=== PATIENT | female | born 1975 | race Caucasian/White ===

== ENCOUNTER → 2019-09-25 13:23 | Outpatient (CLI) | payer OTHER, SELFPAY ==
--- NOTE | ~2019-09-25 | MR_ITS ---
EXAMINATION: MR cervical spine wo/w con EXAM DATE: 09/25/2019 15:47 INDICATION: Possible sclerosis follow-up. TECHNIQUE: Multi-sequential, multiplanar MR images of the cervical spine were obtained without contra st. Axial T2, axial T2 MERGE sequence. Sagittal T1, T2, T2 fat saturation images also obtained. Axi al T1 weighted sequence. Patient was then injected with 10 mL Multihance intravenous contrast and re imaged. Postcontrast axial and sagittal T1-weighted fat saturation sequences were obtained. There ar e no prior studies for comparison. FINDINGS: The spinal cord signal intensity and intrinsic morphology is normal. Cervicomedullary junc tion is normal in appearance. There are no suspicious marrow signal abnormalities. The vertebral bodi es are aligned in the AP dimension. There is mild disc disease at C5-6. Mild cervical arthropathy. No significant stenosis. There are no areas of abnormal enhancement on the post contrast images. IMPRESSION: 1. Normal cervical cord signal. 2. Mild cervical spondylosis. Reviewed, dictated and finalized at location B.
--- NOTE | ~2019-09-25 | MR_ITS ---
EXAMINATION: MR thoracic spine wo/w con EXAM DATE: 09/25/2019 15:42 INDICATION: Multiple sclerosis diagnosed 9 years ago. TECHNIQUE: Multi-sequential, multiplanar MR images of the thoracic spine were obtained without contra st. Sagittal T1, T2, T2 fat saturation, axial T2 weighted images reviewed. Axial T1 weighted sequenc e. Patient was then injected with 10 mL Multihance intravenous contrast and reimaged. Postcontrast axial and sagittal T1-weighted fat saturation sequences were obtained. There are no prior studies for comparison. FINDINGS: The spinal cord signal intensity and intrinsic morphology is normal. There is minimal thora cic disc disease and mild thoracic facet arthropathy. Thoracic neural foramen and central canal widel y patent. Paraspinal soft tissue is unremarkable. There are no areas of abnormal enhancement on the p ost contrast images. IMPRESSION: 1. Minimal thoracic spondylosis. 2. Normal cord signal. Reviewed, dictated and finalized at location B.
--- NOTE | ~2019-09-25 | MR_ITS ---
EXAMINATION: MR brain/brain stem wo/w con EXAM DATE: 09/25/2019 15:40 INDICATION: Follow-up to multiple sclerosis diagnosed 9 years ago. TECHNIQUE: Magnetic resonance imaging (MRI) of the brain/brain stem obtained without contrast. Sagit romero T1, axial diffusion, gradient echo (T2*), T1, T2, FLAIR sequences obtained. Patient was then inj ected with 10 cc intravenous Multihance contrast. Axial and coronal postcontrast T1 weighted sequence s obtained. There is no prior study for comparison. FINDINGS: There is 4 mm chronic-appearing left periventricular white matter hyperintensity, nonspecif ic location. No corpus callosal signal abnormalities. There are no areas of restricted diffusion to s uggest acute infarction. There is no acute hemorrhage seen on the T2*, a hemosiderin sensitive seque nce. No intraparenchymal brain mass. The ventricles are normal in size. There are no extra-axial co llections. Flow voids are seen in the cerebral arteries on the T2-weighted sequences consistent with their expected patency. The orbits are unremarkable. Soft tissue is unremarkable. There are no ar eas of abnormal enhancement on the post contrast images. IMPRESSION: Single nonspecific left periventricular white matter punctate hyperintensity. Reviewed, dictated and finalized at location B. IMPRESSION: Single nonspecific left periventricular white matter punctate hyper intensity.
[2019-09-25 14:07] LABS: Estimated Glomerular Filt Rate > 60
== END ==
DX: G35 Multiple sclerosis (principal); E55.9 Vitamin D deficiency, unspecified; Z79.899 Other long term (current) drug therapy; R93.89 Abnormal findings on diagnostic imaging of other specified body structures; G43.119 Migraine with aura, intractable, without status migrainosus; R93.0 Abnormal findings on diagnostic imaging of skull and head, not elsewhere classified; M47.892 Other spondylosis, cervical region
CPT/HCPCS: 36415; 70553; 72156; 72157; A9577

== ENCOUNTER → 2020-07-21 17:42 | Outpatient (CLI) | payer OTHER, SELFPAY ==
--- NOTE | ~2020-07-21 | MM_ITS ---
EXAMINATION: MM screening timmy BI w lamberto HISTORY: Screening mammogram TECHNIQUE: Craniocaudal and mediolateral oblique 3-D tomosynthesis images were obtained and synthetic 2-D images were generated. CAD analysis was submitted and interpreted. COMPARISON: No prior mammogram is available for comparison at this institution. BREAST PARENCHYMAL COMPOSITION: There are scattered areas of fibroglandular density. FINDINGS: There is no evidence of suspicious mass, calcification, or architectural distortion to sugg est malignancy in either breast. There has been no suspicious interval change. IMPRESSION: 1. No mammographic evidence of malignancy. 2. Recommend routine screening mammography in one year. BI-RADS Category 1: Negative Reviewed, dictated and finalized at location B. 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
== END ==
PROVIDERS: Visit Provider Nurse Practitioner Obstetrics & Gynecology
DX: Z12.31 Encounter for screening mammogram for malignant neoplasm of breast (principal)
CPT/HCPCS: 77063; 77067

== ENCOUNTER → 2020-12-09 07:37 | Outpatient (CLI) | payer OTHER, SELFPAY ==
--- NOTE | ~2020-12-09 | MR_ITS ---
EXAMINATION: MR thoracic spine wo/w con DATE: 12/09/2020 09:56 INDICATION: Multiple sclerosis. TECHNIQUE: Magnetic resonance imaging (MRI) of the thoracic spine was performed without and with 9 mL MultiHance intravenous contrast. Sequences included sagittal and axial T2-weighted FSE, sagittal STI R FSE, and sagittal and axial T1-weighted FSE. Postcontrast sequences included sagittal and axial T1- weighted FS FSE. COMPARISON: Cervical spine MRI 09/25/2019 FINDINGS: Bone alignment is normal. Vertebral body heights and intervertebral disc heights are normal . The distant extend beyond the endplate margins. There is multilevel mild facet joint osteoarthritis . No neural foraminal stenosis or central canal stenosis. The spinal cord signal intensity is normal. IMPRESSION: 1. Normal thoracic spinal cord. Reviewed, dictated and finalized at location B.
--- NOTE | ~2020-12-09 | MR_ITS ---
EXAMINATION: MR cervical spine wo/w con DATE: 12/09/2020 09:59 INDICATION: Multiple sclerosis. TECHNIQUE: Magnetic resonance imaging (MRI) of the cervical spine was performed without and with 9 mL MultiHance intravenous contrast. Sequences included sagittal and axial T2-weighted FSE, sagittal STI R FSE, and sagittal and axial T1-weighted FSE. Postcontrast sequences included sagittal and axial T1- weighted FS FSE. COMPARISON: Cervical spine MRI 09/25/2019 FINDINGS: Bone alignment is normal. Vertebral body heights are normal. There is mildly decreased disc height at C4-C5 and C5-C6. There is a lesion of increased T2-weighted signal intensity in the left p osterior aspect of the spinal cord at C4. No abnormal contrast enhancement. The following disc levels are specifically discussed: C2-C3: The disc does not extend beyond the endplate margin. There is no uncovertebral joint osteoarth ritis. There is mild left facet joint osteoarthritis. There is no neural foraminal stenosis. There is no central canal stenosis. C3-C4: The disc does not extend beyond the endplate margin. There is no uncovertebral joint osteoarth ritis. There is mild left facet joint osteoarthritis. There is no neural foraminal stenosis. There is no central canal stenosis. C4-C5: There is a central protrusion. There is no uncovertebral joint osteoarthritis. There is mild l eft facet joint osteoarthritis. There is no neural foraminal stenosis. There is no central canal sten osis. C5-C6: The disc is bulging. There is mild bilateral uncovertebral joint osteoarthritis. There is mode rate right and mild left facet joint osteoarthritis. There is mild bilateral neural foraminal stenosi s. There is mild central canal stenosis. C6-C7: The disc does not extend beyond the endplate margin. There is no uncovertebral joint osteoarth ritis. There is mild bilateral facet joint osteoarthritis. There is no neural foraminal stenosis. The re is no central canal stenosis. C7-T1: The disc does not extend beyond the endplate margin. There is no uncovertebral joint osteoarth ritis. There is mild right and severe left facet joint osteoarthritis. There is mild left neural fora bárbara stenosis. There is no central canal stenosis. IMPRESSION: 1. Stable spinal cord lesion at C4, consistent with multiple sclerosis. 2. Stable mild cervical spondylosis. Reviewed, dictated and finalized at location B.
--- NOTE | ~2020-12-09 | MR_ITS ---
EXAMINATION: MR brain/brain stem wo/w con DATE: 12/09/2020 10:02 INDICATION: Multiple sclerosis. TECHNIQUE: Magnetic resonance imaging (MRI) of the brain and brainstem was performed without and with 9 mL MultiHance intravenous contrast. Sequences included sagittal and axial T1-weighted FLAIR, axial T1-weighted FSE, axial diffusion-weighted FS EPI, sagittal T2-weighted FLAIR, axial T2*-weighted GRE , axial T2-weighted FLAIR Propeller, and axial T2-weighted Propeller. Postcontrast sequences included axial, coronal, and sagittal T1-weighted FSE. Apparent diffusion coefficient (ADC) maps were created . COMPARISON: Brain MRI 09/25/2019 FINDINGS: There are 3 foci of increased T2-weighted signal intensity in the cerebral white matter, wh ich is normal for the patient's age. There is no infratentorial lesion. There is no enhancing lesion. There is no acute ischemic infarct or intracranial hemorrhage. The ventricles are normal in size. Th ere is mild mucosal thickening in the paranasal sinuses. The orbits are normal. The mastoid air cells are normal. IMPRESSION: 1. Normal aging brain. Reviewed, dictated and finalized at location B. IMPRESSION: 1. Normal aging brain.
[2020-12-09 08:18] LABS: Estimated Glomerular Filt Rate > 60
== END ==
DX: G35 Multiple sclerosis (principal); M47.813 Spondylosis without myelopathy or radiculopathy, cervicothoracic region; M48.03 Spinal stenosis, cervicothoracic region
CPT/HCPCS: 70553; 72156; 72157; A9577

== ENCOUNTER → 2021-11-18 13:07 | Outpatient (CLI) | payer OTHER, SELFPAY ==
--- NOTE | ~2021-11-18 | MM_ITS ---
EXAMINATION: MM screening timmy BI w lamberto HISTORY: Screening mammogram TECHNIQUE: Craniocaudal and mediolateral oblique 3-D tomosynthesis images were obtained and synthetic 2-D images were generated. CAD analysis was submitted and interpreted. COMPARISON: 07/21/2020 bilateral screening mammogram BREAST PARENCHYMAL COMPOSITION: There are scattered areas of fibroglandular density. FINDINGS: There is no evidence of suspicious mass, calcification, or architectural distortion to sugg est malignancy in either breast. There has been no suspicious interval change. IMPRESSION: 1. No mammographic evidence of malignancy. 2. Recommend routine screening mammography in one year. BI-RADS Category 1: Negative Reviewed, dictated and finalized at location A.
== END ==
PROVIDERS: PCP Nurse Practitioner; Visit Provider Nurse Practitioner Obstetrics & Gynecology
DX: Z12.31 Encounter for screening mammogram for malignant neoplasm of breast (principal)
CPT/HCPCS: 77063; 77067

== ENCOUNTER → 2023-02-22 07:25 | Outpatient (CLI) | payer OTHER, SELFPAY ==
--- NOTE | ~2023-02-22 | MM_ITS ---
EXAMINATION: MM screening timmy BI w lamberto HISTORY: Screening mammogram, family history of breast cancer in her mother. TECHNIQUE: Craniocaudal and mediolateral oblique 3-D tomosynthesis images were obtained and synthetic 2-D images were generated. CAD analysis was submitted and interpreted. COMPARISON: 11/18/2021, 07/21/2020 BREAST PARENCHYMAL COMPOSITION: There are scattered areas of fibroglandular density. FINDINGS: No suspicious mass, calcification, or architectural distortion are identified in either ananth ast to suggest malignancy. There has been no suspicious interval change. IMPRESSION: 1. No mammographic evidence of malignancy. 2. Recommend routine screening mammography in one year. BI-RADS Category 1: Negative Reviewed, dictated and finalized at location A.
== END ==
PROVIDERS: PCP Nurse Practitioner; Visit Provider Nurse Practitioner Obstetrics & Gynecology
DX: Z12.31 Encounter for screening mammogram for malignant neoplasm of breast (principal)
CPT/HCPCS: 77063; 77067

== ENCOUNTER 2024-05-10 09:49 | Outpatient (CLI) | payer OTHER, SELFPAY ==
--- NOTE | ~2024-05-10 | MM_ITS ---
EXAMINATION: MM screening timmy BI w lamberto HISTORY: Screening mammogram, family history of breast cancer in her mother. TECHNIQUE: Craniocaudal and mediolateral oblique 3-D tomosynthesis images were obtained and synthetic 2-D images were generated. CAD analysis was submitted and interpreted. COMPARISON: 02/22/2023, 11/18/2021 BREAST PARENCHYMAL COMPOSITION:Dense: The breasts are extremely dense, which lowers the sensitivity o f mammography. FINDINGS: No suspicious mass, calcification, or architectural distortion are identified in either ananth ast to suggest malignancy. There has been no suspicious interval change. IMPRESSION: No mammographic evidence of malignancy. Recommend routine screening mammography in one year. BI-RADS Category 1: Negative Reviewed, dictated and finalized at location .
== END 2024-05-10 09:50 | disposition home or self-care (01) ==
PROVIDERS: PCP Nurse Practitioner Obstetrics & Gynecology; Visit Provider Nurse Practitioner Obstetrics & Gynecology
DX: Z12.31 Encounter for screening mammogram for malignant neoplasm of breast (principal)
CPT/HCPCS: 77063; 77067

== ENCOUNTER 2024-12-15 06:00 | Day surgery (SDC) | payer OTHER, SELFPAY ==
[2024-07-15 11:11] VITALS: BMI 17.3
[2024-11-25 13:11] VITALS: BMI 18.6
--- OUTSIDE RECORDS SUMMARY | 2024-12-15 06:48 | XMS_ITS | Encounter Summary ---
Author Organization [facility] Address [address] [place] [address] Phone Care Team Providers Care Scrap Handler Name Role Phone Unknown, Notinfile Primary Care Provider Unavail able Ayala Howell NP Primary Care Provider [phone] Encounter Details Date Type Department Care Team (Latest Contact Info) Description 02/14/2021 Orders Only [facility] MS Scanning, Provider Social History Tobacco Use Types Packs/Day Years Used Date Smoking Tobacco: Never Smokeless Tobacco: Never Comments No Sex and Gender Information Value Date Recorded Sex Assigned at Not on file Legal Sex Female 10:50 AM DIRECTOR OF MANAGED CARE Gender Identity Female 03/05/2020 9:01 AM CDT Sexual Orientation Straight 03/05/2020 9: 01 AM CDT documented as of this encounter Plan of Treatment Not on file documented as of this encounter Procedures Procedure Name Priority Date/Time Associated Diagnosis Comments SCAN - RADIOLOGY/IMAGING 02/14/2021 4:45 PM CDT documented in this encounter Results * SCAN - RADIOLOGY/IMAGING (02/14/2021 4:45 PM CDT) Anatomical Region Laterality Modality Other us Provider Scanning Final Result documented in this encounter Visit Diagnoses Not on filedocumented in this encounter Care Teams Scrap Handler Relationship Specialty Start Date End Date Unknown, Notinfdarin PCP - General 11/02/19 11/21/21 Ayala Howell, PATIENT ACCOUNT REPRESENTATIVE PCP - General Nurse Practitioner 11/22/21 documented as of this encounter
--- OUTSIDE RECORDS SUMMARY | 2024-12-15 06:48 | XMS_ITS | Clinical Summary ---
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 Name Role Phone Ayala Howell NP Primary Care Provider Allergies Active Allergy Reactions Criticality Noted Date Comments Gadolinium-Containing Contrast Media Itching Low 12/13/2020 Itching, throat tigntness- needs pre-med Medications cholecalciferol (VITAMIN D-3) 2000 unit capsule 1 capsule (2,000 Units total) Active levonorgestreL (MIRENA) IUD 1 each by intrauterine route once Active multivitamin (Multiple Vitamins) tablet Take 1 tablet by mouth daily Active ozanimod (Zeposia) 0.92 mg capsule Take 0.92 mg by mouth daily 90 capsule 1 5 Active dalfampridine 10 mg tablet extended release 12 hr Take 1 tablet (10 mg total) by mouth every 12 (twelve) hours 60 tablet 5 5 Active Active Problems Problem Noted Date Diagnosed Date Protein-calorie malnutrition, unspecified severi ty 07/01/2024 Medication monitoring encounter 07/31/2022 Chronic fatigue disorder 07/31/2022 Immunosuppression due to drug therapy 01/11/2022 Dysesthesia of multiple sites 01/11/2022 History of COVID-19 01/11/2022 Immunocompromised 09/19/2021 Clinical diagnosis of COVID-19 06/20/2021 Multiple sclerosis 08/25/2019 High risk medication use 08/25/2019 Abnormal MRI 08/25/2019 Vitamin D deficiency 08/25/2019 Intractable migraine 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 08/25/2019 Encounters Date Type Department Care Team Description 09/24/2024 6:40 AM CDT - 09/24/2024 11:59 PM CDT Hospital Encounter [facility] ([facility]) [address] [place], [place] [id number] Hali Shay MD Multiple sclerosis (HCC) Discharge Disposition: Discharge to home or self care from Last 3 Months Immunizations Immunization Administration Dates Next Due Influenza, Quadrivalent, Jeniffer l Culture-based MDCK, Preservative Free, Antibiotic Free, Intramuscular 05/03/2023,04/26/2021 Influenza, Trivalent, IM (MDV) 04/21/2022 Medical History Medical History Date Comments Multiple sclerosis (HCC) Social History Tobacco Use Types Packs/Day Years Used Date Smoking Tobacco: Never Smokeless Tobacco: Never Tobacco Cessation:Counseling Given: Not Answered Comments No Sex and Gender Information Value Date Recorded Sex Assigned at Not on file Legal Sex Female 10:50 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 Gender Identity Female 03/05/2020 9:01 AM CDT Sexual Orientation Straight 03/05/2020 9: 01 AM CDT Obstetrics History Last Filed Vital Signs Vital Sign Reading Time Taken Comments Blood Pressure 108/72 07/01/2024 9:52 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 Pulse 105 07/01/2024 9:52 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 Temperature 36.3 C (97.4 F) 11/21/2022 8:01 AM CDT Respiratory Rate 16 09/22/2021 11:35 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 Oxygen Saturation 98% 09/22/2021 11:35 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 Inhaled Oxygen Concentration - - Weight 51 kg (112 lb 6.4 oz) 07/01/2024 9:52 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 Height 167.6 cm (5' 6) 07/01/2024 9:52 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 Body Mass Index 18.14 07/01/2024 9:52 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 Plan of Treatment Health Maintenance Due Date Last Done Comments Cervical Cancer Screening 1977 Colon Cancer Screening-Colonoscopy 1977 Depression Screening 1977 Hepatitis C Screening 1977 DTaP/Tdap/Td Vaccine (1 - Tdap) 1988 Hepatitis B Screening 1995 Regular Well Visit/Exam 18-64 1995 Pneumococcal vaccine <65 (1 of 2 - PCV) 1996 Zoster Vaccine (1 of 2) 1996 Covid-19 Vaccine (2023-2 5 season) 2024 09/10/2022, 01/23/2022, 04/26/2021, Additional history exists Influenza Vaccine (Season Ended) 2025 05/03/2023, 04/21/2022, 04/26/2021 Breast Cancer Screening-Mammogram 05/10/2025 05/10/2024, 11/18/2021, 07/22/2020, Additional history exists Procedures Procedure Name Priority Date/Time Associated Diagnosis Comments MRI MS BRAIN 3T PROTOCOL W/O Schedule Routine, Read Routine (OP Routine) 09/24/2024 8:30 AM CDT Multiple sclerosis (HCC) MRI CERVICAL SPINE WO CONTRAST Schedule Routine, Read Routine (OP Routine) 09/24/2024 8:30 AM CDT Multiple sclerosis (HCC) MRI THORACIC SPINE WO CONTRAST Schedule Routine, Read Routine (OP Routine) 09/24/2024 8:30 AM CDT Multiple sclerosis (HCC) from Last 3 Months Results * MRI Thoracic Spine WO Contrast (09/24/2024 8:30 AM CDT) Anatomical Region Laterality Modality Spine N/A Magnetic Resonan ce 09/24/2024 10:1 2 AM CDT Impressions 09/24/2024 11:32 AM CDT Multiple unchanged intracranial and spinal white matter lesions. New T2 Lesions: None Other significant findings: None Electronically signed by: Wally Quintero M.D. Narrative 09/24/2024 11:32 AM CDT EXAMINATION: 1. Magnetic resonance imaging (MRI) of the brain and brainstem without contrast 2. Magnetic resonance imaging (MRI) of the cervical spine without contrast 3. Magnetic resonance imaging (MRI) of the thoracic spine without contrast HISTORY: Multiple sclerosis. TECHNIQUE: Multiplanar multi-weighted MRI of the brain, brainstem was performed without and with intravenous contrast using the multiple sclerosis protocol, which includes high resolution 3D T1-weighted, FLAIR, and T2*-weighted gradient echo images. Multiplanar multi-weighted MRI of the cervical spine was performed without intravenous contrast using the standard protocol. Multiplanar multi-weighted MRI of the thoracic was performed without and with intravenous contrast using the standard protocol. Scanner: [employer] Field Strength: 3T COMPARISON: None Available. FINDINGS: BRAIN: There are multiple foci of hyperintensity on FLAIR and T2-weighted images within the white matter compatible with demyelinating plaques of multiple sclerosis. This includes periventricular and left thalamic lesions. New Brain T2 Lesions: None T1 Hypointense Black Holes: 0 T2/FLAIR [place] of Disease: Mild, less than 10 typical lesions or 20 punctate lesions Parenchymal Volume Loss: None Central Vein Sign: Central vein sign is noted within the left parietal lobe lesion unchanged. Other Significant Findings: None The visualized portions of the optic nerves are normal. The scalp and calvarium are normal. The superior sagittal sinus demonstrates normal venous flow. The corpus callosum is normal in shape and signal intensity. The posterior fossa is unremarkable. The pituitary and sella are normal. The brainstem and craniocervical junction are unremarkable. Diffusion weighted images reveal no hyperintensities to suggest acute cerebral infarction. The susceptibility weighted sequences reveal no evidence of acute or chronic hemorrhage. The ventricles are normal in size and position without evidence of hydrocephalus. Mild mucosal thickening is seen within the maxillary sinuses. A mucus retention cyst is seen within the left maxillary sinus. The visualized portions of the mastoids are unremarkable. The orbits appear normal. Normal flow voids are demonstrated in the carotid arteries and basilar artery. CERVICAL SPINE: There is a lesion within the dorsal left aspect of the cord at C4-C5, similar to the prior study (series 34, image 24). New Spine T2 Lesions: None The alignment of the cervical spine is normal. Vertebral bodies demonstrate normal signal intensity on all sequences. No acute fracture is identified. The craniocervical junction is normal. The visualized portions of the skull base and the posterior fossa are normal. The spinal cord demonstrates normal signal intensity on all sequences. Intervertebral disks have normal height and signal intensity. There are no annular fissures identified. No soft tissue abnormality is identified. Normal signal voids are present in the vertebral arteries. THORACIC SPINE: New Spine T2 Lesions: None The alignment of the thoracic spine is normal. Vertebral bodies demonstrate normal signal intensity on all sequences. There are no compression fractures. The spinal cord demonstrates normal signal intensity on all sequences. Intervertebral disks have normal height and signal intensity. Limited views of the chest and abdomen show no soft tissue abnormality. The aorta is normal. Procedure Note Wally Quintero MD - 09/24/2024 EXAMINATION: 1. Magnetic resonance imaging (MRI) of the brain and brainstem without contrast 2. Magnetic resonance imaging (MRI) of the cervical spine without contrast 3. Magnetic resonance imaging (MRI) of the thoracic spine without contrast HISTORY: Multiple sclerosis. TECHNIQUE: Multiplanar multi-weighted MRI of the brain, brainstem was performed without and with intravenous contrast using the multiple sclerosis protocol, which includes high resolution 3D T1-weighted, FLAIR, and T2*-weighted gradient echo images. Multiplanar multi-weighted MRI of the cervical spine was performed without intravenous contrast using the standard protocol. Multiplanar multi-weighted MRI of the thoracic was performed without and with intravenous contrast using the standard protocol. Scanner: [employer] Field Strength: 3T COMPARISON: None Available. FINDINGS: BRAIN: There are multiple foci of hyperintensity on FLAIR and T2-weighted images within the white matter compatible with demyelinating plaques of multiple sclerosis. This includes periventricular and left thalamic lesions. New Brain T2 Lesions: None T1 Hypointense Black Holes: 0 T2/FLAIR [place] of Disease: Mild, less than 10 typical lesions or 20 punctate lesions Parenchymal Volume Loss: None Central Vein Sign: Central vein sign is noted within the left parietal lobe lesion unchanged. Other Significant Findings: None The visualized portions of the optic nerves are normal. The scalp and calvarium are normal. The superior sagittal sinus demonstrates normal venous flow. The corpus callosum is normal in shape and signal intensity. The posterior fossa is unremarkable. The pituitary and sella are normal. The brainstem and craniocervical junction are unremarkable. Diffusion weighted images reveal no hyperintensities to suggest acute cerebral infarction. The susceptibility weighted sequences reveal no evidence of acute or chronic hemorrhage. The ventricles are normal in size and position without evidence of hydrocephalus. Mild mucosal thickening is seen within the maxillary sinuses. A mucus retention cyst is seen within the left maxillary sinus. The visualized portions of the mastoids are unremarkable. The orbits appear normal. Normal flow voids are demonstrated in the carotid arteries and basilar artery. CERVICAL SPINE: There is a lesion within the dorsal left aspect of the cord at C4-C5, similar to the prior study (series 34, image 24). New Spine T2 Lesions: None The alignment of the cervical spine is normal. Vertebral bodies demonstrate normal signal intensity on all sequences. No acute fracture is identified. The craniocervical junction is normal. The visualized portions of the skull base and the posterior fossa are normal. The spinal cord demonstrates normal signal intensity on all sequences. Intervertebral disks have normal height and signal intensity. There are no annular fissures identified. No soft tissue abnormality is identified. Normal signal voids are present in the vertebral arteries. THORACIC SPINE: New Spine T2 Lesions: None The alignment of the thoracic spine is normal. Vertebral bodies demonstrate normal signal intensity on all sequences. There are no compression fractures. The spinal cord demonstrates normal signal intensity on all sequences. Intervertebral disks have normal height and signal intensity. Limited views of the chest and abdomen show no soft tissue abnormality. The aorta is normal. IMPRESSION: Multiple unchanged intracranial and spinal white matter lesions. New T2 Lesions: None Other significant findings: None Electronically signed by: Wally Quintero M.D. Hali Shay MD IMG MRI PROCEDURES Final Result * MRI Cervical Spine WO Contrast (09/24/2024 8:30 AM CDT) Anatomical Region Laterality Modality Spine N/A Magnetic Resonan ce 09/24/2024 10:1 2 AM CDT Impressions 09/24/2024 11:32 AM CDT Multiple unchanged intracranial and spinal white matter lesions. New T2 Lesions: None Other significant findings: None Electronically signed by: Wally Quintero M.D. Narrative 09/24/2024 11:32 AM CDT EXAMINATION: 1. Magnetic resonance imaging (MRI) of the brain and brainstem without contrast 2. Magnetic resonance imaging (MRI) of the cervical spine without contrast 3. Magnetic resonance imaging (MRI) of the thoracic spine without contrast HISTORY: Multiple sclerosis. TECHNIQUE: Multiplanar multi-weighted MRI of the brain, brainstem was performed without and with intravenous contrast using the multiple sclerosis protocol, which includes high resolution 3D T1-weighted, FLAIR, and T2*-weighted gradient echo images. Multiplanar multi-weighted MRI of the cervical spine was performed without intravenous contrast using the standard protocol. Multiplanar multi-weighted MRI of the thoracic was performed without and with intravenous contrast using the standard protocol. Scanner: [employer] Field Strength: 3T COMPARISON: None Available. FINDINGS: BRAIN: There are multiple foci of hyperintensity on FLAIR and T2-weighted images within the white matter compatible with demyelinating plaques of multiple sclerosis. This includes periventricular and left thalamic lesions. New Brain T2 Lesions: None T1 Hypointense Black Holes: 0 T2/FLAIR [place] of Disease: Mild, less than 10 typical lesions or 20 punctate lesions Parenchymal Volume Loss: None Central Vein Sign: Central vein sign is noted within the left parietal lobe lesion unchanged. Other Significant Findings: None The visualized portions of the optic nerves are normal. The scalp and calvarium are normal. The superior sagittal sinus demonstrates normal venous flow. The corpus callosum is normal in shape and signal intensity. The posterior fossa is unremarkable. The pituitary and sella are normal. The brainstem and craniocervical junction are unremarkable. Diffusion weighted images reveal no hyperintensities to suggest acute cerebral infarction. The susceptibility weighted sequences reveal no evidence of acute or chronic hemorrhage. The ventricles are normal in size and position without evidence of hydrocephalus. Mild mucosal thickening is seen within the maxillary sinuses. A mucus retention cyst is seen within the left maxillary sinus. The visualized portions of the mastoids are unremarkable. The orbits appear normal. Normal flow voids are demonstrated in the carotid arteries and basilar artery. CERVICAL SPINE: There is a lesion within the dorsal left aspect of the cord at C4-C5, similar to the prior study (series 34, image 24). New Spine T2 Lesions: None The alignment of the cervical spine is normal. Vertebral bodies demonstrate normal signal intensity on all sequences. No acute fracture is identified. The craniocervical junction is normal. The visualized portions of the skull base and the posterior fossa are normal. The spinal cord demonstrates normal signal intensity on all sequences. Intervertebral disks have normal height and signal intensity. There are no annular fissures identified. No soft tissue abnormality is identified. Normal signal voids are present in the vertebral arteries. THORACIC SPINE: New Spine T2 Lesions: None The alignment of the thoracic spine is normal. Vertebral bodies demonstrate normal signal intensity on all sequences. There are no compression fractures. The spinal cord demonstrates normal signal intensity on all sequences. Intervertebral disks have normal height and signal intensity. Limited views of the chest and abdomen show no soft tissue abnormality. The aorta is normal. Procedure Note Wally Quintero MD - 09/24/2024 EXAMINATION: 1. Magnetic resonance imaging (MRI) of the brain and brainstem without contrast 2. Magnetic resonance imaging (MRI) of the cervical spine without contrast 3. Magnetic resonance imaging (MRI) of the thoracic spine without contrast HISTORY: Multiple sclerosis. TECHNIQUE: Multiplanar multi-weighted MRI of the brain, brainstem was performed without and with intravenous contrast using the multiple sclerosis protocol, which includes high resolution 3D T1-weighted, FLAIR, and T2*-weighted gradient echo images. Multiplanar multi-weighted MRI of the cervical spine was performed without intravenous contrast using the standard protocol. Multiplanar multi-weighted MRI of the thoracic was performed without and with intravenous contrast using the standard protocol. Scanner: [employer] Field Strength: 3T COMPARISON: None Available. FINDINGS: BRAIN: There are multiple foci of hyperintensity on FLAIR and T2-weighted images within the white matter compatible with demyelinating plaques of multiple sclerosis. This includes periventricular and left thalamic lesions. New Brain T2 Lesions: None T1 Hypointense Black Holes: 0 T2/FLAIR [place] of Disease: Mild, less than 10 typical lesions or 20 punctate lesions Parenchymal Volume Loss: None Central Vein Sign: Central vein sign is noted within the left parietal lobe lesion unchanged. Other Significant Findings: None The visualized portions of the optic nerves are normal. The scalp and calvarium are normal. The superior sagittal sinus demonstrates normal venous flow. The corpus callosum is normal in shape and signal intensity. The posterior fossa is unremarkable. The pituitary and sella are normal. The brainstem and craniocervical junction are unremarkable. Diffusion weighted images reveal no hyperintensities to suggest acute cerebral infarction. The susceptibility weighted sequences reveal no evidence of acute or chronic hemorrhage. The ventricles are normal in size and position without evidence of hydrocephalus. Mild mucosal thickening is seen within the maxillary sinuses. A mucus retention cyst is seen within the left maxillary sinus. The visualized portions of the mastoids are unremarkable. The orbits appear normal. Normal flow voids are demonstrated in the carotid arteries and basilar artery. CERVICAL SPINE: There is a lesion within the dorsal left aspect of the cord at C4-C5, similar to the prior study (series 34, image 24). New Spine T2 Lesions: None The alignment of the cervical spine is normal. Vertebral bodies demonstrate normal signal intensity on all sequences. No acute fracture is identified. The craniocervical junction is normal. The visualized portions of the skull base and the posterior fossa are normal. The spinal cord demonstrates normal signal intensity on all sequences. Intervertebral disks have normal height and signal intensity. There are no annular fissures identified. No soft tissue abnormality is identified. Normal signal voids are present in the vertebral arteries. THORACIC SPINE: New Spine T2 Lesions: None The alignment of the thoracic spine is normal. Vertebral bodies demonstrate normal signal intensity on all sequences. There are no compression fractures. The spinal cord demonstrates normal signal intensity on all sequences. Intervertebral disks have normal height and signal intensity. Limited views of the chest and abdomen show no soft tissue abnormality. The aorta is normal. IMPRESSION: Multiple unchanged intracranial and spinal white matter lesions. New T2 Lesions: None Other significant findings: None Electronically signed by: Wally Quintero M.D. us Hali Shay MD IMG MRI PROCEDURES Final Result * MRI MS Brain 3T Protocol WO (09/24/2024 8:30 AM CDT) Anatomical Region Laterality Modality Head and Neck N/A Magnetic Resonan ce 09/24/2024 10:1 2 AM CDT Impressions 09/24/2024 11:32 AM CDT Multiple unchanged intracranial and spinal white matter lesions. New T2 Lesions: None Other significant findings: None Electronically signed by: Wally Quintero M.D. Narrative 09/24/2024 11:32 AM CDT EXAMINATION: 1. Magnetic resonance imaging (MRI) of the brain and brainstem without contrast 2. Magnetic resonance imaging (MRI) of the cervical spine without contrast 3. Magnetic resonance imaging (MRI) of the thoracic spine without contrast HISTORY: Multiple sclerosis. TECHNIQUE: Multiplanar multi-weighted MRI of the brain, brainstem was performed without and with intravenous contrast using the multiple sclerosis protocol, which includes high resolution 3D T1-weighted, FLAIR, and T2*-weighted gradient echo images. Multiplanar multi-weighted MRI of the cervical spine was performed without intravenous contrast using the standard protocol. Multiplanar multi-weighted MRI of the thoracic was performed without and with intravenous contrast using the standard protocol. Scanner: [employer] Field Strength: 3T COMPARISON: None Available. FINDINGS: BRAIN: There are multiple foci of hyperintensity on FLAIR and T2-weighted images within the white matter compatible with demyelinating plaques of multiple sclerosis. This includes periventricular and left thalamic lesions. New Brain T2 Lesions: None T1 Hypointense Black Holes: 0 T2/FLAIR [place] of Disease: Mild, less than 10 typical lesions or 20 punctate lesions Parenchymal Volume Loss: None Central Vein Sign: Central vein sign is noted within the left parietal lobe lesion unchanged. Other Significant Findings: None The visualized portions of the optic nerves are normal. The scalp and calvarium are normal. The superior sagittal sinus demonstrates normal venous flow. The corpus callosum is normal in shape and signal intensity. The posterior fossa is unremarkable. The pituitary and sella are normal. The brainstem and craniocervical junction are unremarkable. Diffusion weighted images reveal no hyperintensities to suggest acute cerebral infarction. The susceptibility weighted sequences reveal no evidence of acute or chronic hemorrhage. The ventricles are normal in size and position without evidence of hydrocephalus. Mild mucosal thickening is seen within the maxillary sinuses. A mucus retention cyst is seen within the left maxillary sinus. The visualized portions of the mastoids are unremarkable. The orbits appear normal. Normal flow voids are demonstrated in the carotid arteries and basilar artery. CERVICAL SPINE: There is a lesion within the dorsal left aspect of the cord at C4-C5, similar to the prior study (series 34, image 24). New Spine T2 Lesions: None The alignment of the cervical spine is normal. Vertebral bodies demonstrate normal signal intensity on all sequences. No acute fracture is identified. The craniocervical junction is normal. The visualized portions of the skull base and the posterior fossa are normal. The spinal cord demonstrates normal signal intensity on all sequences. Intervertebral disks have normal height and signal intensity. There are no annular fissures identified. No soft tissue abnormality is identified. Normal signal voids are present in the vertebral arteries. THORACIC SPINE: New Spine T2 Lesions: None The alignment of the thoracic spine is normal. Vertebral bodies demonstrate normal signal intensity on all sequences. There are no compression fractures. The spinal cord demonstrates normal signal intensity on all sequences. Intervertebral disks have normal height and signal intensity. Limited views of the chest and abdomen show no soft tissue abnormality. The aorta is normal. Procedure Note Wally Quintero MD - 09/24/2024 EXAMINATION: 1. Magnetic resonance imaging (MRI) of the brain and brainstem without contrast 2. Magnetic resonance imaging (MRI) of the cervical spine without contrast 3. Magnetic resonance imaging (MRI) of the thoracic spine without contrast HISTORY: Multiple sclerosis. TECHNIQUE: Multiplanar multi-weighted MRI of the brain, brainstem was performed without and with intravenous contrast using the multiple sclerosis protocol, which includes high resolution 3D T1-weighted, FLAIR, and T2*-weighted gradient echo images. Multiplanar multi-weighted MRI of the cervical spine was performed without intravenous contrast using the standard protocol. Multiplanar multi-weighted MRI of the thoracic was performed without and with intravenous contrast using the standard protocol. Scanner: [employer] Field Strength: 3T COMPARISON: None Available. FINDINGS: BRAIN: There are multiple foci of hyperintensity on FLAIR and T2-weighted images within the white matter compatible with demyelinating plaques of multiple sclerosis. This includes periventricular and left thalamic lesions. New Brain T2 Lesions: None T1 Hypointense Black Holes: 0 T2/FLAIR [place] of Disease: Mild, less than 10 typical lesions or 20 punctate lesions Parenchymal Volume Loss: None Central Vein Sign: Central vein sign is noted within the left parietal lobe lesion unchanged. Other Significant Findings: None The visualized portions of the optic nerves are normal. The scalp and calvarium are normal. The superior sagittal sinus demonstrates normal venous flow. The corpus callosum is normal in shape and signal intensity. The posterior fossa is unremarkable. The pituitary and sella are normal. The brainstem and craniocervical junction are unremarkable. Diffusion weighted images reveal no hyperintensities to suggest acute cerebral infarction. The susceptibility weighted sequences reveal no evidence of acute or chronic hemorrhage. The ventricles are normal in size and position without evidence of hydrocephalus. Mild mucosal thickening is seen within the maxillary sinuses. A mucus retention cyst is seen within the left maxillary sinus. The visualized portions of the mastoids are unremarkable. The orbits appear normal. Normal flow voids are demonstrated in the carotid arteries and basilar artery. CERVICAL SPINE: There is a lesion within the dorsal left aspect of the cord at C4-C5, similar to the prior study (series 34, image 24). New Spine T2 Lesions: None The alignment of the cervical spine is normal. Vertebral bodies demonstrate normal signal intensity on all sequences. No acute fracture is identified. The craniocervical junction is normal. The visualized portions of the skull base and the posterior fossa are normal. The spinal cord demonstrates normal signal intensity on all sequences. Intervertebral disks have normal height and signal intensity. There are no annular fissures identified. No soft tissue abnormality is identified. Normal signal voids are present in the vertebral arteries. THORACIC SPINE: New Spine T2 Lesions: None The alignment of the thoracic spine is normal. Vertebral bodies demonstrate normal signal intensity on all sequences. There are no compression fractures. The spinal cord demonstrates normal signal intensity on all sequences. Intervertebral disks have normal height and signal intensity. Limited views of the chest and abdomen show no soft tissue abnormality. The aorta is normal. IMPRESSION: Multiple unchanged intracranial and spinal white matter lesions. New T2 Lesions: None Other significant findings: None Electronically signed by: Wally Quintero M.D. Hali Shay MD IM MRI PROCEDURES Final Result from Last 3 Months Insurance [facility] P[facility] Care Teams Wide Piece Goods Inspector Relationship Specialty Start Date End Date Ayala Howell NP PCP - General Nurse Practitioner 11/22/21
--- OUTSIDE RECORDS SUMMARY | 2024-12-15 06:48 | XMS_ITS | Clinical Summary ---
Author Organization [facility] [address] [place] [address] [place] [id number] Care Team Providers Care Software Developer Mid Level Name Role Phone Unavailable Primary Care Provider Unavailabl e Immunizations Immunization Administration Dates Next Due Influenza Seasonal Unspecified Formulation IM Social History Tobacco Use Types Packs/Day Years Used Date Smoking Tobacco: Never Assessed Comments Unknown Sex and Gender Information Value Date Recorded Sex Assigned at Not on file Legal Sex Female 1:35 PM CDT Gender Identity Not on file Sexual Orientation Not on file Plan of Treatment Health Maintenance Due Date Last Done Comments DTAP/TDAP/TD VACCINES (1 - Tdap) 1996 HEPATITIS B VACCINES (1 of 3 - 19+ 3-dose series) 1996 HPV/Cotest (21-29) 1998 CERVICAL CANCER SCREENING 2007 HPV/Cotest (30-65) 2007 PAP SMEAR 2007 BREAST CANCER SCREENING 2017 COLORECTAL SCREENING 2022 Colorectal Cancer Screening 2022 FIT-DNA Q 3 years 2022 FIT/FOBT Q 1 year 2022 Flex Sig/CT Colonography Q 5 years 2022 INFLUENZA VACCINE (#1) 2024 04/21/2022, 2020 Insurance [employer] CHOICE POS II
--- OUTSIDE RECORDS SUMMARY | 2024-12-15 06:48 | XMS_ITS | Encounter Summary ---
Author Organization [facility] Address [address] [place] [address] Phone Care Team Providers Care Product Safety Administrator Name Role Phone Joe Umana DO Primary Care Provider [phone] Tanisha Shen SEISMIC INTERPRETER Primary Care Provider [phone] Unknown, Notinfile Primary Care Provider Unavail able Ayala Howell AUTOMATED EQUIPMENT ENGINEER TECHNICIAN Primary Care Provider [phone] Encounter Details Date Type Department Care Team (Latest Contact Info) Description 01/13/2013 Orders Only [facility] MS Scanning, Provider Social History Tobacco Use Types Packs/Day Years Used Date Smoking Tobacco: Never Assessed Comments Unknown Sex and Gender Information Value Date Recorded Sex Assigned at Not on file Legal Sex Female 10:50 AM STRAINER TENDER Gender Identity Female 03/05/2020 9:01 AM CDT Sexual Orientation Straight 03/05/2020 9: 01 AM CDT documented as of this encounter Plan of Treatment Not on file documented as of this encounter Procedures Procedure Name Priority Date/Time Associated Diagnosis Comments SCAN - NEUROLOGY 01/13/2013 documented in this encounter Results * SCAN - NEUROLOGY (01/13/2013) Anatomical Region Laterality Modality Other us Provider Scanning Final Result documented in this encounter Visit Diagnoses Not on filedocumented in this encounter Care Teams Product Safety Administrator Relationship Specialty Start Date End Date Joe Umana DO PCP - General Internal Medicine 08/14/19 08/25/19 Tnaisha Shen, SEISMIC INTERPRETER [address] [place] [address] PCP - General 08/26/19 11/01/19 Unknown, Notinfile PCP - General 11/02/19 11/21/21 Ayala Howell, AUTOMATED EQUIPMENT ENGINEER TECHNICIAN PCP - General Nurse Practitioner 11/22/21 documented as of this encounter
--- OUTSIDE RECORDS SUMMARY | 2024-12-15 06:48 | XMS_ITS | Referral Summary ---
Author Organization [facility] Address [address] [place] [id number] Care Team Providers Care Pencil Maker Name Role Phone Ayala Howell NP Primary Care Provider [phone] Encounters Date Type Department Care Team Description 09/24/2024 6:40 AM CDT - 09/24/2024 11:59 PM CDT Hospital Encounter [facility] [address] [place] [phone] Hali Shay MD Multiple sclerosis (HCC) Discharge Disposition: Discharge to home or self care from Last 3 Months Allergies Active Allergy Reactions Criticality Noted Date [...] 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 08/25/2019 Immunizations Immunization Administration Dates Next Due Influenza, Quadrivalent, Jeniffer l Culture-based MDCK, Preservative Free, Antibiotic Free, Intramuscular 05/03/2023,04/26/2021 Influenza, Trivalent, IM (MDV) 04/21/2022 Social History Tobacco Use Types Packs/Day Years Used Date Smoking Tobacco: Never Smokeless Tobacco: Never Tobacco Cessation:Counseling Given: Not Answered Comments No Sex and Gender Information Value Date Recorded Sex Assigned at Not on file Legal Sex Female 10:50 AM CLINICIAN ONCOLOGY Gender Identity Female 03/05/2020 9:01 AM CDT Sexual Orientation Straight 03/05/2020 9: 01 AM CDT Last Filed Vital Signs Vital Sign Reading Time Taken Comments Blood Pressure 108/72 07/01/2024 9:52 AM CLINICIAN ONCOLOGY Pulse 105 07/01/2024 9:52 AM CLINICIAN ONCOLOGY Temperature 36.3 C (97.4 F) 11/21/2022 8:01 AM CDT Respiratory Rate 16 09/22/2021 11:35 AM CLINICIAN ONCOLOGY Oxygen Saturation 98% 09/22/2021 11:35 AM CLINICIAN ONCOLOGY Inhaled Oxygen Concentration - - Weight 51 kg (112 lb 6.4 oz) 07/01/2024 9:52 AM CLINICIAN ONCOLOGY Height 167.6 cm (5' 6) 07/01/2024 9:52 AM CLINICIAN ONCOLOGY Body Mass Index 18.14 07/01/2024 9:52 AM CLINICIAN ONCOLOGY Plan of Treatment Not on file Procedures Procedure Name Priority Date/Time Associated Diagnosis [...] intravenous contrast using the standard protocol. Scanner: [employer] Field Strength: 3T COMPARISON: None Available. FINDINGS: BRAIN: There are multiple foci of hyperintensity on FLAIR and T2-weighted images within the white matter compatible with demyelinating plaques of multiple sclerosis. This includes periventricular and left thalamic lesions. New Brain T2 Lesions: None T1 Hypointense Black Holes: 0 T2/FLAIR [place] of Disease: Mild, less than 10 typical [...] intravenous contrast using the standard protocol. Scanner: [employer] Field Strength: 3T COMPARISON: None Available. FINDINGS: BRAIN: There are multiple foci of hyperintensity on FLAIR and T2-weighted images within the white matter compatible with demyelinating plaques of multiple sclerosis. This includes periventricular and left thalamic lesions. New Brain T2 Lesions: None T1 Hypointense Black Holes: 0 T2/FLAIR [place] of Disease: Mild, less than 10 typical [...] Shay MD IM MRI PROCEDURES Final Result * MRI Cervical [...] intravenous contrast using the standard protocol. Scanner: [employer] Field Strength: 3T COMPARISON: None Available. FINDINGS: BRAIN: There are multiple foci of hyperintensity on FLAIR and T2-weighted images within the white matter compatible with demyelinating plaques of multiple sclerosis. This includes periventricular and left thalamic lesions. New Brain T2 Lesions: None T1 Hypointense Black Holes: 0 T2/FLAIR [place] of Disease: Mild, less than 10 typical [...] intravenous contrast using the standard protocol. Scanner: [employer] Field Strength: 3T COMPARISON: None Available. FINDINGS: BRAIN: There are multiple foci of hyperintensity on FLAIR and T2-weighted images within the white matter compatible with demyelinating plaques of multiple sclerosis. This includes periventricular and left thalamic lesions. New Brain T2 Lesions: None T1 Hypointense Black Holes: 0 T2/FLAIR [place] of Disease: Mild, less than 10 typical [...] Wally Quintero M.D. us Hali Shay MD IMObed MRI PROCEDURES Final Result * MRI MS [...] intravenous contrast using the standard protocol. Scanner: [employer] Field Strength: 3T COMPARISON: None Available. FINDINGS: BRAIN: There are multiple foci of hyperintensity on FLAIR and T2-weighted images within the white matter compatible with demyelinating plaques of multiple sclerosis. This includes periventricular and left thalamic lesions. New Brain T2 Lesions: None T1 Hypointense Black Holes: 0 T2/FLAIR [place] of Disease: Mild, less than 10 typical [...] intravenous contrast using the standard protocol. Scanner: [place] Field Strength: 3T COMPARISON: None Available. FINDINGS: BRAIN: There are multiple foci of hyperintensity on FLAIR and T2-weighted images within the white matter compatible with demyelinating plaques of multiple sclerosis. This includes periventricular and left thalamic lesions. New Brain T2 Lesions: None T1 Hypointense Black Holes: 0 T2/FLAIR [place] of Disease: Mild, less than 10 typical [...] Final Result from Last 3 Months Insurance [employer] [facility] Care Teams Pencil Maker Relationship Specialty Start Date End Date Ayala Howell NP PCP - General Nurse Practitioner 11/22/21
--- OUTSIDE RECORDS SUMMARY | 2024-12-15 06:48 | XMS_ITS | Encounter Summary ---
Author Organization [facility] Address [address] [place] [address] Care Team Providers Care Staff Nuclear Medicine Technologist Name Role Phone Ayala Howell NP Primary Care Provider [phone] Encounter Details Date Type Department Care Team (Late st Contact Info) Description 11/23/2021 Telephone [facility] Radiology [address] [place] [address] Hali Shay MD [address] [facility] [address] [place] [address] Social History Tobacco Use Types Packs/Day Years Used Date Smoking Tobacco: Never Smokeless Tobacco: Never Comments No Sex and Gender Information Value Date Recorded Sex Assigned at Not on file Legal Sex Female 10:50 AM PHARMACIST MANAGER Gender Identity Female 03/05/2020 9:01 AM CDT Sexual Orientation Straight 03/05/2020 9: 01 AM CDT documented as of this encounter Plan of Treatment Not on file documented as of this encounter Visit Diagnoses Not on filedocumented in this encounter Care Teams Staff Nuclear Medicine Technologist Relationship Specialty Start Date End Date Ayala Howell NP PCP - General Nurse Practitioner 11/22/21 documented as of this encounter
--- OUTSIDE RECORDS SUMMARY | 2024-12-15 06:48 | XMS_ITS | Data Portability ---
Author Organization [facility] Address [address] [place] [address] Care Team Providers Care Legal Document Specialist Name Role Phone HORACIO ALEXANDER Primary Care Provider [phone] Assessment Encounter Date Assessment Date Assessment LastModified by Organization Details LastModified Time 04/23/2020 04/23/2020 Annual gynecological exam performed. Patient will come back in a year unless there are new symptoms. [email or web address] Not available 04/23/2020 09:35:47 04/26/2021 04/26/2021 Annual gynecological exam performed. Patient will come back in a year unless there are new symptoms. [email or web address] Not available 04/26/2021 10:37:54 05/11/2022 05/11/2022 Annual gynecological exam performed. Patient will come back in a year unless there are new symptoms. Not available 05/11/2022 09:37:37 05/21/2023 05/21/2023 Annual gynecological exam performed. Patient will come back in a year unless there are new symptoms. [email or web address] Not available 05/21/2023 09:25:03 06/04/2024 06/04/2024 Annual gynecological exam performed. Patient will come back in a year unless there are new symptoms. [email or web address] Not available 06/04/2024 09:32:24 Plan of Treatment Reminders Order Date Submit Date Provider Last Modified By Organization Details Last Modified Time Details Appointments None record ed. Lab None record ed. Referral None record ed. Procedures None record ed. Surgeries None record ed. Imaging None record ed. Medication Orders None record ed. Patient TargetsNo targets recorded. Patient Instructions Encounter Date Encounter Id Patient Instructions Last Modified By Organization Details Last Modified Time 04/23/2020 [id number] [email or web address] Not available 10:00:22 Reason for Referral None Reported. Results Created Date Observation Date Name Description Value Unit Range Abnormal Flag Note LastModifiedBy Organization Detail LastModifiedTime 04/23/20 20 04/26/2020 pap, LB Pap test thin prep Negati ve for Intrae pithel ial Lesion or Malign kanwal normal ACCES BILL #: [id number] Sourc e: Cervi chandler/E ndoce rvica l LMP: 12/02 Date Taken : 04/23 Speci men Type: ThinP rep Vial Date Repor niya: 04/26 Clini chandler Data: Cytot ech: Tanisha Sheth , CT( CP) Date Repor niya: 04/26 Speci men Adequ acy: Satis facto ry for evalu ation Endoc ervic al/tr ansfo rmati on zone compo nent prese nt Gener al Categ oriza tion: NEGAT SIMI FOR INTRA EPITH ELIAL LESIO N OR MALIG HERNÁN This speci men has been leena zed by the ThinP rep Imagi ng Syste m, an inter activ e compu ter syste m which aviva ts the lab in the scree kassie of ThinP rep Pap Test slide bishop wilson imagi ng, the slide was revie wed by a Cytot echno logis t and/o r Patho logis t. D N A A S S A Y S R E P O R T TEST NAME RESUL TS ----- ---- ----- -- HPV High Risk Scree n (TMA) ThinP rep Vial The human papil lomav irus (HPV) High Risk Scree n is an FDA-a pprov ed in-vi tro ampli fied nucle ic acid test for the quali tativ e detec tion of E6/E7 viral mRNA. Resul ts crystal anguiano corre lated with patie nt prese ntati on, histo ry, cervi chandler cytol ogy and other clini chandler and labor atory findi ngs. See https ://Hall/s ites/ defau lt/fi les/2 018-0 3/AW- [id number] _002_ 01.pd f for [facility] er infor matio n. Test perfo rmed by [employer], d/b/a [facility], [address], [place] [address] , Scot Tovar ra, , Labor atory Dire tor. HPV High Risk *HPV NOT DETEC NIYA (TYPE S 16, 18, 31, 33, 35, 39, 45, 51, 52, 56, 58, 59, 66, 68) *HPV: The human papil lomav irus (HPV) High Risk Vaishnavi roberts is an FDA-a pprov ed in-vi tro ampli fied nucle ic acid test for the quali tativ e detec tion of E6/E7 viral mRNA. [facility] shoul d be corre lated with patie nt prese ntati on, histo ry, cervi chandler cytol ogy and other clini chandler and labor atory findi ngs. See https ://Hall/s ites/ defau lt/fi 018-0 3/- [id number] _002_ 01.pd f for [facility] er infor matio n. Test perfo rmed by [employer], d/b/a [facility], [address], [place] [address] , Scot Tovar ra, , Labor atory Dire tor. End of Repor t Techn ical servi lilliam provi ded by [employer], d/b/a [facility], [address] [place] [address] Gilbert Vidal MD, Labor Easy [place] Dire [place]. Case revie wed and diagn osis rende red at [employer], d/b/a [facility], [address] [place] [address] Gilbert Vidal MD, Labor atory Dire tor. CONFI DENTI AL Not Available [facility] ([facility]) [address], [place], [address], 04/26/2020 16:56:19 04/23/20 20 04/24/2020 HPV DNA, high- risk HPV high risk NOT DETECT ED normal Not Available [facility] ([facility]) [address], [place], [address], 04/26/2020 16:56:19 05/11/20 22 05/11/2022 IMAGE GUIDE D PAP AND HPV REGAR DLESS image guided Pap, HPV regardless of Pap result SEE RESULT S BELOW CASE REPOR T: Cytol ogy Gynec ologi chandler Repor t Case: [id number] Autho luz elena buck Provi chago: Aubrey Rodriguez Colle cted: 05/11 1406 BOLT SAWYER Order ing Locat ion: [place] [facility] Recei nick: 05/12 0043 First Scree n: Ralph z, Anthony am, CT Rescr een: Carrol Noriega , CT Speci men: Vaishnavi fernando Pap - Image d, Cervi x STATE MENT OF ADEQU ACY: Satis facto ry for evalu ation Trans forma tion zone compo nent prese nt. FINAL DIAGN OSIS: Negat simi for Intra epith elial Lesio n or Danial more (NIL) . Jen lea d by Carrol Noriega , CT on 2021 at 9:36 AM ----- ----- ----- ----- ----- ----- ----- ----- ----- ----- ----- ----- ----- ----- ----- ----- ----- ---- HPV RESUL TS: HPV mRNA E6/E7 : No HPV mRNA Detec niya NOTE: This high risk HPV mRNA assay detec ts fourt een high- risk HPV types (16, 18, 31, 33, 35, 39, 45, 51, 52, 56, 58, 59, 66, 68) witho ut diffe renti ation . COMME NT: Note: This speci men was revie wed by a Cytot echno logis t and/o r Patho logis t (as indic ated in this repor t) after evalu ation using the Thinp rep Imagi ng Syste m. CLINI CHANDLER INFOR MATIO N: Menst rual Statu s: LMP (if appli cable ): Clini chandler Histo ry/Pr eviou s Pap: Type of Neopl kim (if appli cable ): Signi fican t Clini chandler Findi ngs: Other Histo ry: Hormo vadim (if appli cable ): PAP EDUCA ERICA L NOTE: The Pap Test is a scree kassie test with an inher ent false negat simi rate. Liqui d-bas ed sampl ing may decre ase, but will not elimi patrice, false negat simi resul ts. A negat simi resul t does not precl ude the prese nce and/o r devel opmen t of disea se, since the prese nce of abnor mal cells in the sampl e depen ds on the locat ion of the lesio n and sampl ing techn ique. Matteo nued regul ar scree kassie is the best metho d of cance r preve ntion . If repor niya cytol ogic findi ng do not corre late with physi chandler and/o r histo rical findi ngs, furth er inves tigat ion is recom kyrie d, as clini akiko medina nted. Not Available [facility] (Lab) [address], [place], [address], 05/17/2022 10:39:26 07/22/19 21 07/21/2020 MAMMO , scree kassie, bilat eral No observ ation record ed. ANGEL [facility] [address], [place], [address], 07/23/2020 22:09:47 11/19/19 22 11/18/2021 MAMMO , scree kassie, bilat eral No observ ation record ed. [email or web address] [facility] [address], [place], [address], 01/15/2023 15:02:17 02/23/20 23 02/22/2023 MAMMO , scree kassie, digit al, bilat eral No observ ation record ed. [email or web address] [facility] [address], [place], [address], 05/21/2023 10:55:07 05/12/20 24 05/10/2024 MAMMO , scree kassie, bilat eral No observ ation record ed. ANGEL [facility] [address], [place], [address], 05/12/2024 17:03:10 Result Notes None recorded. Problems Name Problem SNOMED Code Status Onset Date Resolution Date Notes Provider Name and Address Organization Details Recorded Time Family history of breast cancer 902838297 Completed 201904/25/2021 Family history of malignant neoplasm of breast;Re corded Elsewhere : No Locati on: [facility] So urce: EHR Chron ic: N Practic e ID: [id number] Bill able Time: 11:00:00 AM [facility] 15:37:20 Finding of regulari ty of menstrua l cycle Completed 201904/25/2021 Irregular menstruat ion, unspecifi ed;Record ed Elsewhere : No Locati on: [facility] So urce: EHR Chron ic: N Practic e ID: 0001 Bill able Time: 09:30:00 AM [facility] 15:37:23 Insertio n of intraute rine contrace ptive device Completed 201904/25/2021 Encounter for insertion of intrauter ine contracep tive device;Re corded Elsewhere : No Locati on: [facility] So urce: EHR Chron ic: N Practic e ID: 0001 Bill able Time: 09:45:00 AM Sarah Moscoso [facility] 15:37:25 Uterine leiomyom a [id number] Completed 201904/25/2021 Leiomyoma of uterus, unspecifi ed;Record ed Elsewhere : No Locati on: [facility] So urce: EHR Chron ic: N Practic e ID: 0001 Bill able Time: 11:00:00 AM Sarah Moscoso [facility] 15:37:[address] Concept Completed 201904/25/2021 Encounter for other contracep tive managemen t;Recorde d Elsewhere : No Locati on: [facility] So urce: EHR Chron ic: N Practic e ID: 0001 Bill able Time: 09:45:00 AM Sarah Moscoso [facility] 15:37:28 Contrace ption care manageme nt Completed 201904/25/2021 Encounter for contracep tive managemen t, unspecifi ed;Record ed Elsewhere : No Locati on: [facility] So urce: EHR Chron ic: N Practic e ID: 0001 Bill able Time: 11:00:00 AM Sarah Moscoso [facility] 15:37:19 Finding of pattern of menstrua l cycle 675370580 Completed 201904/25/2021 Menometro rrhagia;R ecorded Elsewhere : No Locati on: [facility] So urce: EHR Chron ic: N Practic e ID: 0001 Bill able Time: 11:00:00 AM Sarah Moscoso [facility] 15:37:22 Pregnanc y test negative [id number] Completed 201904/25/2021 Encounter for test, result negative; Recorded Elsewhere : No Locati on: [facility] So urce: EHR Chron ic: N Practic e ID: 0001 Bill able Time: 09:45:00 AM Sarah Moscoso [facility] 15:37:26 Problem Notes None recorded. Procedures Surgical History Date Name Laterality Status Provider Name and Address Organization Details Recorded Time 02/23/20 23 Date of Last Mammogram completed Cassandra Stanley [facility] 05/21/2023 09:26:32 05/11/20 22 Date of Last Pap Smear completed JOANNA VALDEZ NP [address], [place], [address], [facility] 06/04/2024 09:50:35 07/16/18 96 extraction of wisdom tooth completed Cassandra Stanley [facility] 05/21/2023 09:30:51 Imaging Results None recorded. Procedure Notes None recorded. Medical Equipment None Reported. Allergies No known drug allergies Medications Name Sig Start Date Stop Date Status Note LastModified by Organization Details LastModified Time Mirena 21 mcg/24 hr (up to 8 years) 52 mg intrauter ine device Take by intraute rine route. active Not Available Not Available No t Available meclizine 12.5 mg tablet 04/26 completed Not Available Not Available Not Available prochlorp erazine maleate 10 mg tablet 04/26 completed Not Available Not Available Not Available amoxicill in 875 mg tablet TAKE 1 TABLET BY MOUTH TWICE A DAY FOR 10 DAYS 06/04 completed Not Available Not Available Not Available Multiple Vitamins tablet active Prescrib ed Elsewher e: Yes Loca tion: [facility] odify By: lola walker DateTime : 09/05/19 08:30:00 AM Not Available Not Available Not Available Vitamin D2 1,250 mcg (50,000 unit) capsule take 1 capsule by oral route every week 05/21 completed Prescrib ed Elsewher e: Yes [facility]ify By: lola walker DateTime : 09/05/19 08:30:00 AM Not Available Not Available Not Available dalfampri dine 05/11 completed Not Available Not Available Not Available dalfampri dine ER 10 mg tablet,ex tended release,1 2 hr 06/04 completed Not Available Not Available Not Available Gilenya 0.5 mg capsule 05/21 completed Not Available Not Available Not Available Gilenya 0.25 mg capsule take 2 capsule by oral route every day 04/25 completed Prescrib fernanda Darby e: Yes [facility] By: charlie mora DateTime : 07/18/19 10:30:00 AM Not Available Not Available Not Available Zeposia 0.92 mg capsule active Not Available Not Available Not Available Zeposia Starter Kit (37-day) 0.23 mg-0.46 mg-0.92 mg capsules dosepack 05/21 completed Not Available Not Available Not Available Paxlovid 300 mg (150 mg x 2)-100 mg tablets in a dose pack TAKE 3 TABLETS BY MOUTH TWICE A DAY FOR 5 DAYS 05/11 completed Not Available Not Available Not Available Vitals Date Recorded Body height Body mass index (BMI) Body weight Systolic blood pressure Diastolic blood pressure Provider Name and Address Organization Details Last Updated DateTime 04/23/2020 167.64 cm 19.5 kg/m2 11829.68 g 113 mm[Hg] 74 mm[Hg] Starr Reyna [facility] 0 09:42:50 Date Recorded Body height Body mass index (BMI) Body weight Systolic blood pressure Diastolic blood pressure Provider Name and Address Organization Details Last Updated DateTime 04/26/2021 167.64 cm 17.3 kg/m2 23551.38 g 106 mm[Hg] 74 mm[Hg] [facility] 10:21:55 Date Recorded Body height Body mass index (BMI) Body weight Systolic blood pressure Diastolic blood pressure Provider Name and Address Organization Details Last Updated DateTime 05/11/2022 165.1 cm 19 kg/m2 28018.53 g 120 mm[Hg] 80 mm[Hg] [facility] 2 09:39:30 Date Recorded Body height Body mass index (BMI) Body weight Systolic blood pressure Diastolic blood pressure Provider Name and Address Organization Details Last Updated DateTime 05/21/2023 165.1 cm 19.1 kg/m2 97390.12 g 109 mm[Hg] 77 mm[Hg] Cassandra Stanley [facility] 3 09:25:36 Date Recorded Body height Body mass index (BMI) Body weight Systolic blood pressure Diastolic blood pressure Provider Name and Address Organization Details Last Updated DateTime 06/04/2024 165.1 cm 19 kg/m2 61422.53 g 98 mm[Hg] 67 mm[Hg] Valeria Yuan [facility] 4 09:34:53 Social History Question Answer Notes LastModified by Organizat ion Details LastModified Time Tobacco Smoking Status Never Smoker Cassandra Stanley [facility] 05/21/2023 09:26:33 Do You Have An Advance Directive? Yes Information n ot available 04/26/2021 How Many Years Have You Consumed Alcohol? 25 [email or web address] Information not available 05/21/2023 Are You Blind Or Do You Have Difficulty Seeing? No Information n ot available 04/25/2021 What Is Your Level Of Caffeine Consumption? Moderate Information not available 04/26/2021 How Much Tobacco Do You Chew? None Information not available 04/26/2021 In The 14 Days Before Symptom Onset, Have You Had Close Contact With A Laboratory-confirm ed COVID-19 While That Case Was Ill? No Information n ot available 05/11/2022 In The 14 Days Before Symptom Onset, Have You Had Close Contact With A Person Who Is Under Investigation For COVID-19 While That Person Was Ill? No Information not available 04/26/2021 Have You Been To An Area Known To Be High Risk For COVID-19? No Information not available 04/26/2021 Are You Deaf Or Do You Have Serious Difficulty Hearing? No Information not available 04/25/2021 What Type Of Diet Are You Following? REGULAR [email or web address] Information n ot available 06/04/2024 What Is The Highest Grade Or Level Of School You Have Completed Or The Highest Degree You Have Received? [id number] Information not available 04/26/2021 Are There Any Guns Present In Your Home? No Information not available 04/26/2021 Do You Use Protection During Sex? No Information not available 04/26/2021 Do You Use Your Seat Belt Or Car Seat Routinely? Yes Information not available 04/25/2021 Do You Have Smoke And Carbon Monoxide Detectors In Your Home? Yes Information not available 04/25/2021 How Much Tobacco Do You Smoke? No Information not available 04/26/2021 Do You Use Sunscreen Routinely? Yes Information not available 04/25/2021 Have You Used IV Drugs? No Information not available 04/26/2021 Do You Have Difficulty Walking Or Climbing Stairs? No Information not available 05/21/2023 Sex: Female Functional Status Question Answer Note LastModified by Organizat ion Details LastModified Time Do you use any illicit or recreational drugs? No Information not available 04/25/2021 What is your level of alcohol consumption? Occasional Information not available 04/26/2021 Are you able to walk? YESWOREST Information not available 04/25/2021 Are you able to care for yourself? 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 No Information not available 05/21/2023 What is your exercise level? Occasional Information not available 04/26/2021 Mental Status Question Answer Note LastModified by Organization D etails LastModified Time Do you feel stressed (tense, restless, nervous, or anxious, or unable to sleep at night)? [id number] Information not available 04/25/2021 Family History Relationship Description Onset Age of this Age Resolved Age Notes LastModified by Organization Details LastModified Time Mother Carcinoma in situ of breast [email or web address] Not available 2023 09:13:50 Mother Hypercholest erolemia [email or web address] Not available 2019 09:37:02 Father Diabetes mellitus [email or web address] Not available 2019 09:37:14 Father Hypertensive disorder [email or web address] Not available 2019 09:37:28 Maternal Grandfather Hypertensive disorder [email or web address] Not available 2019 09:37:28 Medical History Condition Response Other Y Blood Transfusion N Dermatologic Disorders N Gestational Diabetes N Anxiety Disorder N Autoimmune disease N Arthritis N Polyps N Infertility N Acid Reflux (GERD) N Cancer N Varicosities N Stroke N Neurologic/Epilepsy Y Fibromyalgia N Headaches N Kidney Disease N Heart Problems N Kidney or Bladder Problems N Eating Disorder N Art (IVF or FET) N Hepatitis/Liver Disease N No Past Medical History N Urinary Tract Infection N Asthma N Trauma/Violence N Thrombophilias N Allergies (Food, seasonal, environmental ) N Breast Cancer N Drug/Latex Allergies/Reactions N Lung Disease N Defects or Inherited Disease N Breast Problem N Hematologic disorders N Anesthesia Complications N History of STI N Deep Vein Thrombosis N Polycystic ovary syndrome N History of abnormal pap N Endometriosis N High Cholesterol N Thyroid Problems N GI Problems N Anemia N Psychiatric Illness N Ovarian Cancer N Diabetes N Pulmonary (TB, Asthma) N Eczema N Abuse/Domestic Violence N Depression/ depression N Heart Disease N Pre-Eclampsia N Hypertension N Osteoporosis N Gynecological History Statement/Question Response Abnormal Pap N Date of Last Mammogram 02/22/2023 Flow Moderate Date of LMP 04/24/2024 On BCP's at Conception? N N Was last menstrual period normal N STIs/STDs N HPV Vaccine N 14 Current Control Method IUD Age at First Child 30 Sexually Active? Y Date of DEXA bone scan Age of first menstrual cycle 16 Date of Last Pap Smear 05/11/2022 Sexual Problems? N Desired Control Method IUD LMP Approximate N Obstetrics History GPAL:G 3 P 2 0 1 2 Type Value Full Term 2 Spontaneous 1 Living 2 Total 3 Past Encounters Encounter ID Performer Location Encounter Start Date Encounter Closed Date Diagnosis/Indication Diagnosis SNOMED-CT Code Diagnosis ICD10 Code Diagnosis Note [id number] [address] [address] 04/23/2020 09:31:58 04/23/2020 10:05:09 Gynecologic examination [id number] Z01.419 Suggested Calcium with Vitamin D 1200-1500m g daily. Patient advised to get an annual flu shot in the fall and she could obtain at [facility] or [facility]. Also to obtain TDap vaccinatio n if you have not had one in the last 10 years. Recommend yearly mammograms . Encouraged monthly self breast exams. Encourage safe sexual practices, to use condoms and limit partners if not already in a monogamous relationsh ip. Engage in daily exercise of low impact aerobic exercise 45-60 minutes 4-5 times weekly. Avoid tobacco and illicit drugs as well as using moderation with alcohol intake less than 1-2 8 oz beverages daily. This lifestyle behavior pattern will lead to less health conditions and longer life span. If BMI greater than 25 weight watchers or dietary consult advised. All questions have been answered. Patient appears to understand informatio n, but if you have any questions please call or respond to this email. Normal Pap/hpV Hx Monogamou s relationsh ip. Updated pap/hpv this year Mammo ordered IUD in place. Happy with device. No issues or concerns this year. [id number] Gail Mathew , [facility] [address] [address] 04/26/2021 09:48:57 04/26/2021 10:52:58 Gynecologic examination 53528560 Z01.419 Suggested Calcium with Vitamin D 1200-1500m g daily. Patient advised to get an annual flu shot in the fall and she could obtain at [facility] or [facility] care clinic. Also to obtain TDap vaccinatio n if you have not had one in the last 10 years. Recommend yearly mammograms . Encouraged monthly self breast exams. Encourage safe sexual practices, to use condoms and limit partners if not already in a monogamous relationsh ip. Engage in daily exercise of low impact aerobic exercise 45-60 minutes 4-5 times weekly. Avoid tobacco and illicit drugs as well as using moderation with alcohol intake less than 1-2 8 oz beverages daily. This lifestyle behavior pattern will lead to less health conditions and longer life span. If BMI greater than 25 weight watchers or dietary consult advised. All questions have been answered. Patient appears to understand informatio n, but if you have any questions please call or respond to this email. Normal Pap/hpV Hx Monogamous relationsh ip. WNL (2019) pap/hpv this year Mammo wnl (2020) IUD in place. Happy with device. No issues or concerns this year. Rec The menopause manifesto by Dr. Rosalie Gonsalves (having some night sweats but does not want anything for them. Does not feel she is needing anything yet). [id number] Gail Mathew [facility] [address] [address] 05/11/2022 09:10:23 05/11/2022 10:10:37 Gynecologic examination [id number] Z01.419 Suggested Calcium with Vitamin D 1200-1500m g daily. Patient advised to get an annual flu shot in the fall and she could obtain at [facility] or [facility] care clinic. Also to obtain TDap vaccinatio n if you have not had one in the last 10 years. Recommend yearly mammograms . Encouraged monthly self breast exams. Encourage safe sexual practices, to use condoms and limit partners if not already in a monogamous relationsh ip. Engage in daily exercise of low impact aerobic exercise 45-60 minutes 4-5 times weekly. Avoid tobacco and illicit drugs as well as using moderation with alcohol intake less than 1-2 8 oz beverages daily. This lifestyle behavior pattern will lead to less health conditions and longer life span. If BMI greater than 25 weight watchers or dietary consult advised. All questions have been answered. Patient appears to understand informatio n, but if you have any questions please call or respond to this email. Pap/hpv sent STD Screen declined Genetic Screen discussed Colon Screen PCP Dexa Screen na Routine Labs PCPMammo wnl NOTE: if continues to have random instances of spotting with IUD will reach out to schedule updated TVUS for further evaluation . Otherwise, will monitor for now. [id number] Gail Mathew , [facility] [address] [address] 05/21/2023 09:03:50 05/21/2023 10:57:38 Gynecologic examination [id number] Z01.419 Z11.51 Suggested Calcium with Vitamin D 1200-1500m g daily. Patient advised to get an annual flu shot in the fall and she could obtain at [facility] or [facility] care clinic. Also to obtain TDap vaccinatio n if you have not had one in the last 10 years. Recommend yearly mammograms . Encouraged monthly self breast exams. Encourage safe sexual practices, to use condoms and limit partners if not already in a monogamous relationsh ip. Engage in daily exercise of low impact aerobic exercise 45-60 minutes 4-5 times weekly. Avoid tobacco and illicit drugs as well as using moderation with alcohol intake less than 1-2 8 oz beverages daily. This lifestyle behavior pattern will lead to less health conditions and longer life span. If BMI greater than 25 weight watchers or dietary consult advised. All questions have been answered. Patient appears to understand informatio n, but if you have any questions please call or respond to this email. Pap/hpv due q3yrs unless otherwise indicated per asccpSTD Screen declinedGe netic Screen discussed & will consider due to family history.Co keely Screen PCPDexa Screen naRoutine Labs PCPMammo wnl NOTE: if continues to have random instances of spotting with IUD will reach out to schedule updated TVUS for further evaluation . Otherwise, will monitor for now. [id number] Ferny Garcia MD [place] [address] [address] 06/04/2024 09:13:27 06/04/2024 09:59:37 Gynecologic examination [id number] Z01.419 Annual gynecologi chandler exam performed. Patient will come back in a year unless there are new symptoms. Suggest Calcium with Vitamin D if not eating in diet. Patient advised to get annual flu shot. Recommend yearly physicals and perform monthly breast exams. Genetic testing is available for patients with family history of cancer. Engage in safe sexual practices, use condoms. Encouraged to have daily exercise. Avoid tobacco and illicit drugs, moderation of alcohol. If BMI greater than 25 dietary consult advised. If you have any questions please call or email. mammogram- UTD - 04/24/24 BIRADS 1 colon cancer screening - DUE; pt prefers cologuard - no family hx of colon cancer DEXA scan- n/a Pap smear- UTD (2021 - WNL), will repeat next year per ASCCP guidelines laboratory evaluation - PCP STI testing - declined Contracept ion care management [id number] Z30.9 Patient happy with Mirena IUD, expires in 2027.Strin gs intact/vis ible. Screening for malignant neoplasm of colon [id number] Z12.11 Cologuard ordered Health Concerns Section Related Observation LastModified by Organization Detai ls LastModified Time None Recorded Concern Status LastModified by Organization Details LastModified Time None Recorded Advance Directives Directive Y: Payers Encounter Date Sequence Insurance Name Policy Number Policy Zarate Covered Member ID Zarate Member ID Guarantor Name 04/23/2020 1 [employer] (POS) [id number] Chuy R Feather [id number] 1 Jessica Feather 04/26/2021 1 [employer] (POS II) [id number] Chuy R Feather [id number] 1 Jessica Feather 05/11/2022 1 [employer] (POS II) [id number] Chuy R Feather [id number] 1 Jessica Feather 05/21/2023 1 [employer] (POS II) [id number] Chuy R Feather [id number] 1 Jessica Feather 06/04/2024 1 [employer] (POS II) [id number] Chuy R Feather [id number] 1 Jessica Feather Notes Date Note Type Note Provider Name and Address Organization Details Recorded Time 04/23/2020 text/html Annual GYNReport ed bypatient.History: no gynecologic complaints Menstrual cycle:Normal menses Urinary symptoms:No hematuria; No incontinence Vulva:No genital lesion Vagina:Normal vaginal discharge Breast:No breast pain; No breast lump; No nipple discharge Current Contraception:Sati sfied with current contraception; Monogamous relationship; Intrauterine device (iud) Sexual complaints:No sexual complaints; No pain during intercourse; Normal libido Menopausal Symptoms:No menopausal symptoms; Normal vaginal lubrication Psychological symptoms:No depression; No anxiety; No PMDD Preventive measures:Encourage self breast examination; Encourage regular exercise; Encourage no tobacco use; Encourage regular mammograms starting age 40; Followed with Q3 year pap smear and high risk HPV typing; Needs to schedule mammogram Gail Mathew, [facility] [address], [place], [address], [facility] 04/23/2020 10:03:17 04/26/2021 text/html Annual GYNReport ed bypatient.Menstrua l cycle:Normal menses (Amenorrheic on IUD) Urinary symptoms:No hematuria; No incontinence Vulva:No genital lesion Vagina:Normal vaginal discharge Breast:No breast pain; No breast lump; No nipple discharge Current Contraception:Sati sfied with current contraception; Monogamous relationship; Intrauterine device (iud) Sexual complaints:No sexual complaints; No pain during intercourse; Normal libido Menopausal Symptoms:No menopausal symptoms; Normal vaginal lubrication Psychological symptoms:No depression; No anxiety; No PMDD Preventive measures:Encourage self breast examination; Encourage regular exercise; Encourage no tobacco use; Encourage regular mammograms starting age 40; Followed with Q3 year pap smear and high risk HPV typing; [facility]ogram performed within the past [facility] [address], [place], [address], [facility] 04/26/2021 10:40:07 05/11/2022 text/html Annual GYNReport ed bypatient.Menstrua l cycle:Normal menses (Amenorrheic on IUD mirena. Did have a few instances of spotting x 1 day. Thinks it's just stress. No other sx's reported.) Urinary symptoms:No hematuria; No incontinence Vulva:No genital lesion Vagina:Normal vaginal discharge Breast:No breast pain; No breast lump; No nipple discharge Current Contraception:Sati sfied with current contraception; Intrauterine device (iud) Sexual complaints:No sexual complaints; No pain during intercourse; Normal libido Menopausal Symptoms:No menopausal symptoms; Normal vaginal lubrication Psychological symptoms:No depression; No anxiety; No PMDD Preventive measures:Encourage self breast examination; Encourage regular exercise; Encourage no tobacco use; Encourage regular mammograms starting age 40; Followed with yearly pap smears; Mammogram performed within the past year; Up to date on colonoscopy screening COREY Velez [address], [place], [address], [facility] 05/11/2022 09:53:36 05/21/2023 text/html Annual GYNReport ed bypatient.Menstrua l cycle:Normal menses Urinary symptoms:No hematuria; No incontinence Vulva:No genital lesion Vagina:Normal vaginal discharge Breast:No breast pain; No breast lump; No nipple discharge Current Contraception:Sati sfied with current contraception; Intrauterine device (iud) Sexual complaints:No sexual complaints; No pain during intercourse; Normal libido Menopausal Symptoms:No menopausal symptoms; Normal vaginal lubrication Psychological symptoms:No depression; No anxiety; No PMDD Preventive measures:Encourage self breast examination; Encourage regular exercise; Encourage no tobacco use; Encourage regular mammograms starting age 40; Mammogram performed within the past year; Up to date on colonoscopy screening NICOLE Velez- [address], [place], [address], [facility] 05/21/2023 10:56:56 06/04/2024 text/html Annual GYNReport ed bypatient.Menstrua l cycle:occasional spotting with IUD Urinary symptoms:No hematuria; No incontinence Vulva:No genital lesion Vagina:Normal vaginal discharge Breast:No breast pain; No breast lump; No nipple discharge Current Contraception:Rabia sfied with current contraception; Intrauterine device (iud) Sexual complaints:No sexual complaints; No pain during intercourse; Normal libido Menopausal Symptoms:No menopausal symptoms; Normal vaginal lubrication Psychological symptoms:No depression; No anxiety; No PMDD Preventive measures:Encourage self breast examination; Encourage regular exercise; Encourage no tobacco use; Encourage regular mammograms starting age 40; Mammogram performed within the past year; Needs to schedule colonoscopy Patient presents for annual well woman exam. Patient denies concerns today. JOANNA VALDEZ NP [address], [place], [address], [facility] 06/04/2024 09:50:40 OBGyn Episode Ob Episode Information Episode Created Date Number of Fetuses Patient Bloodtype Patient rh Status Prepregnancy Weight lbs Domestic Partner Domestic Partner Phone Father Name Corrective Therapist Status 05/21/20 23 1 CLOSED Fetus Data First Name Last Name Admitted to NICU Weight (g) Sex Living Outcome Pediatric Complications Fetus ID Race Codes Race Delivery Type 2863.07 [id number] F Full Term [id number] Vaginal Delivery Bassam Calculation Initial Bassam Date Initial Exam Date Initial Exam Provider Initial Ultrasound Date Last Menstrual Period Date Ultra Sound Weeks Gestation 0 Eighteen To Twenty Week Bassam Update Ultra Sound Date Fundal Height At Umbil Quickening Date Ultra Sound Latest Weeks Gestation Final Bassam Confirmed By Final Bassam Confirmed Date Final Bassam Date Ultra Sound Latest Days Gestation 0 0 Menstrual History Last Menstrual Date Menses Monthly On Bcp Conception Prior Menses Frequency Hcg Plus Date Menarche Onset Age Delivery Information Delivery Date Delivery Type Labor Anesthesia Weeks Gestation Incision Type Labor Labor Length Hrs Delivered By Post Complications Tubal Sterilization Discharge Date Comments 6 36 Discharge Information Feeding Method Contraceptive Method Maternal HG B and HCT Levels Ob Episode Information Episode Created Date Number of Fetuses Patient Bloodtype Patient rh Status Prepregnancy Weight lbs Domestic Partner Domestic Partner Phone Father Name Corrective Therapist Status 05/21/20 23 1 CLOSED Fetus Data First Name Last Name Admitted to NICU Weight (g) Sex Living Outcome Pediatric Complications Fetus ID Race Codes Race Delivery Type , Spontane ous [id number] Bassam Calculation Initial Bassam Date Initial Exam Date Initial Exam Provider Initial Ultrasound Date Last Menstrual Period Date Ultra Sound Weeks Gestation 0 Eighteen To Twenty Week Bassam Update Ultra Sound Date Fundal Height At Umbil Quickening Date Ultra Sound Latest Weeks Gestation Final Bassam Confirmed By Final Bassam Confirmed Date Final Bassam Date Ultra Sound Latest Days Gestation 0 0 Menstrual History Last Menstrual Date Menses Monthly On Bcp Conception Prior Menses Frequency Hcg Plus Date Menarche Onset Age Delivery Information Delivery Date Delivery Type Labor Anesthesia Weeks Gestation Incision Type Labor Labor Length Hrs Delivered By Post Complications Tubal Sterilization Discharge Date Comments 7 Discharge Information Feeding Method Contraceptive Method Maternal HG B and HCT Levels Ob Episode Information Episode Created Date Number of Fetuses Patient Bloodtype Patient rh Status Prepregnancy Weight lbs Domestic Partner Domestic Partner Phone Father Name Corrective Therapist Status 05/21/20 23 1 CLOSED Fetus Data First Name Last Name Admitted to NICU Weight (g) Sex Living Outcome Pediatric Complications Fetus ID Race Codes Race Delivery Type 3316.66 [id number] F Full Term [id number] Vaginal Delivery Bassam Calculation Initial Bassam Date Initial Exam Date Initial Exam Provider Initial Ultrasound Date Last Menstrual Period Date Ultra Sound Weeks Gestation 0 Eighteen To Twenty Week Bassam Update Ultra Sound Date Fundal Height At Umbil Quickening Date Ultra Sound Latest Weeks Gestation Final Bassam Confirmed By Final Bassam Confirmed Date Final Bassam Date Ultra Sound Latest Days Gestation 0 0 Menstrual History Last Menstrual Date Menses Monthly On Bcp Conception Prior Menses Frequency Hcg Plus Date Menarche Onset Age Delivery Information Delivery Date Delivery Type Labor Anesthesia Weeks Gestation Incision Type Labor Labor Length Hrs Delivered By Post Complications Tubal Sterilization Discharge Date Comments 8 40 Discharge Information Feeding Method Contraceptive Method Maternal HG B and HCT Levels
[2024-12-15 07:00] VITALS: BP 107/73; PULSE 73; RESP 18; TEMP 36.7; O2SAT 100
--- NOTE | 2024-12-15 07:00 | P.PNAN_ITS ---
Anes - Initial Pre Proc Eval Procedure: Operation Date: 12/15/24 08:00 Proposed Procedures p Screening Colonoscopy - Tom Solitario MD Date/Time: 12/15/24 07:00 Surgeon: Tom Solitario MD Pre Op Diagnosis: Neoplasm Screening Patient Data Age: 49 Gender: F Height: 1.68 m Weight: 52.3 kg Allergies Allergy/AdvReac Type Severity Reaction Status Date / Time gadobenic acid (From Allergy Intermediate throat Verified 11/25/24 13:25 contrast - MRI) swelling Home Medications ?Medication ?Instructions ?Recorded ?Confirmed ?Type multivitamin 1 tablet PO DAILY 08/07/19 11/25/24 History dalfampridine 10 mg 10 mg PO BID 11/25/24 11/25/24 History tablet,extended release,12 hr ergocalciferol (vitamin D2) 1,250 1,250 mcg PO WEEKLY 11/25/24 11/25/24 History mcg (50,000 unit) capsule (Vitamin D2) ozanimod 0.92 mg capsule (Zeposia) 0.92 mg PO DAILY 11/25/24 11/25/24 History Patient hx anesthesia problems: none Family hx anesthesia problems: none Results Review: All pre-operative results and documents have been reviewed as part of the pre- operative evaluation. [facility] Past Medical History Medical History (Updated 06/29/21 @ 10:28 by Ayala Howell NP) COVID-19 Multiple sclerosis Hx of migraine headaches Family History Family History Mother Breast cancer High cholesterol Father Diabetes mellitus Grandparent Sepsis Grandparent High cholesterol Kidney failure Grandparent Alzheimers disease Cardiopulmonary arrest Grandparent Hypertension Cerebrovascular accident Social History Social History Smoking status: Never smoker Alcohol intake: current Alcohol use details: occasionally Substance use type: does not use Living arrangements: with family Spiritual care concerns: No Anes - Eval Final PreProcedure Day of Procedure 12/15/24 07:00 Patient weight: normal Heart: regular rate and rhythm Lungs: clear to auscultation and normal air movement Airway: Mallampati scale class II Neurological: alert and oriented Last oral intake: >/= 8 hours ASA classification: II Emergent: no Anesthetic plan: proceed Anesthesia type and monitoring: general GIVS and standard monitoring Results Review: All pre-operative results and documents have been reviewed as part of the pre- operative evaluation. Informed Consent: The patient's anesthetic plan and its attendant risks and benefits were discussed with the patient/family/POA. Questions were solicited and answers provided to the satisfaction of the patient/family/POA.
[2024-12-15] MEDS: LACTATED RINGERS 1,000 ML 150 ML IV CONT (07:15)
--- NOTE | 2024-12-15 07:55 | P.HP_ITS ---
H&P: HPI History of Present Illness Date/Time: 12/15/24 07:55 Chief Complaint: Positive Cologuard test Narrative: This is the patient's first colonoscopy. she has a positive Cologuard test obtained by her primary care physician. There are no GI symptoms and there is no family history of colorectal cancer. Review of Systems Review of Systems: All systems reviewed & are unremarkable except as noted in HPI and below PMFSH Past Medical History Medical History (Updated 12/15/24 @ 07:56 by Tom Solitario MD) COVID-19 Multiple sclerosis Hx of migraine headaches Family History Family History Mother Breast cancer High cholesterol Father Diabetes mellitus Grandparent Sepsis Grandparent High cholesterol Kidney failure Grandparent Alzheimers disease Cardiopulmonary arrest Grandparent Hypertension Cerebrovascular accident Social History Social History Smoking status: Never smoker Alcohol intake: current Alcohol use details: occasionally Substance use type: does not use Living arrangements: with family Spiritual care concerns: No Meds Home Medications and Allergies Home Medications ?Medication ?Instructions ?Recorded ?Confirmed ?Type multivitamin 1 tablet PO DAILY 08/07/19 12/15/24 History dalfampridine 10 mg 10 mg PO BID 11/25/24 12/15/24 History tablet,extended release,12 hr ergocalciferol (vitamin D2) 1,250 1,250 mcg PO WEEKLY 11/25/24 12/15/24 History mcg (50,000 unit) capsule (Vitamin D2) ozanimod 0.92 mg capsule (Zeposia) 0.92 mg PO DAILY 11/25/24 12/15/24 History Allergies Allergy/AdvReac Type Severity Reaction Status Date / Time gadobenic acid (From Allergy Intermediate throat Verified 12/15/24 07:19 contrast - MRI) swelling Vital Signs Vital Signs - 24 hr 12/15/24 07:00 Temperature 98.1 F Pulse Rate 73 Respiratory Rate 18 Blood Pressure 107/73 Pulse Oximetry 100 Oxygen Delivery Room Air Exam Const: General: cooperative and healthy appearing Resp: Effort & Inspection: normal respiratory effort and able to speak in complete sentences Auscultation: clear to auscultation bilaterally Cardio: Rate: regular rate Rhythm: regular rhythm GI: Inspection: normal to inspection GI Palp: No No hepatosplenomegaly present Auscultation: normal bowel sounds Rectal Exam: deferred Skin: General skin exam: normal color Psych: Appearance: grossly normal Mental Status: mental status grossly normal Assessment and Plan Assessment and plan (1) Positive colorectal cancer screening using Cologuard test: Code(s): R19.5 - Other fecal abnormalities Status: Acute Assessment and Plan: The patient is deemed a good candidate for the procedure. Consent signed. Will proceed.
[2024-12-15 08:23] VITALS: BP 90/55; PULSE 66; RESP 14; O2SAT 100
--- NOTE | 2024-12-15 08:27 | SUR.OPER ---
Ascending colon polyp removed, not retrieved in trap. Dr. Solitario aware.
[2024-12-15 08:33] VITALS: BP 120/65; PULSE 74; RESP 16; O2SAT 100
[2024-12-15 08:43] VITALS: BP 96/75; PULSE 67; RESP 16; O2SAT 99
--- NOTE | 2024-12-15 11:40 | WPDANESPN ---
Anes - Prog Note Post-Op Date/Time: 12/15/24 11:40 Cardiovascular status: normal Respiratory status: normal Airway patency: baseline Mental status: baseline Post-Op hydration status: normal Vital Signs: Last Vital Signs Temp 36.7 C 12/15/24 07:00 Pulse 67 12/15/24 08:43 Resp 16 12/15/24 08:43 BP 96/75 L 12/15/24 08:43 Pulse Ox 99 12/15/24 08:43 O2 Del Method Room Air 12/15/24 08:43 Pain Score (VAS): 0 I/O: Intake & Output 12/14/24 12/15/24 12/15/24 23:59 07:59 15:59 Intake Total 600 Balance 600 Post-procedural complaints: none Patient Feedback: Patient satisfied with anesthetic care. Other Findings: Patient vital signs back to baseline. Patient denies nausea and vomiting. Patient's pain under control. Patient OK for discharge.
== END 2024-12-15 08:57 | disposition home or self-care (01) ==
PROVIDERS: PCP Nurse Practitioner; Visit Provider Internal Medicine Gastroenterology
PROC: 0DJD8ZZ Inspection of Lower Intestinal Tract, Via Natural or Artificial Opening Endoscopic (ICD-10-PCS; CPT 45378; principal; 2024-12-15 08:00)
DX: Z12.11 Encounter for screening for malignant neoplasm of colon (principal); R19.5 Other fecal abnormalities; K63.5 Polyp of colon
CPT/HCPCS: 45385